=== PATIENT | male | born 1955 | race Caucasian/White ===

== ENCOUNTER 2018-01-06 11:28 | Emergency (ER) | payer BC ==
[2018-01-06 12:11] LABS: #Basophils 0.1 thou/uL (0.0-0.2); #Eosinphils 0.1 thou/uL (0.0-0.7); #Lymphocytes 1.3 thou/uL (1.20-3.40); #Monocytes 0.4 thou/uL (0.11-0.59); #Neutrophils 4.1 thou/uL (1.40-6.50); %Basophils 1.1 % (0.0-1.0); %Eosinophils 0.9 % (0.0-10.0); %Lymphocytes 22.2 % (21.0-51.0); %Monocytes 6.1 % (0.0-10.0); %Neutrophils 69.7 % (42.0-75.0); Hemoglobin 14.6 g/dL (14.0-18.0); Mean Corpuscular HGB CONC 33.6 g/dL (32.0-36.0); Mean Corpuscular Hemoglobin 31.5 pg (27.0-31.0); Mean Corpuscular Volume 93.6 fL (78.0-98.0); Mean Platelet Volume 6.7 fL (7.4-10.4); Platelet Count 302 thou/uL (130-400); RBC Distribution Width 11.2 % (11.5-14.5); Red Blood Cell (RBC) Count 4.65 mill/uL (4.70-6.10); White Blood Cell (WBC) Count 5.9 thou/uL (4.8-10.8)
[2018-01-06 12:35] LABS: ALT (SGPT) 19 U/L (8-55); AST (SGOT) 19 U/L (5-34); Albumin 4.9 g/dL (3.4-4.8); Alkaline Phosphatase 54 U/L (40-150); Anion Gap 13 mmol/L (10-20); BUN (Urea Nitrogen) 14 mg/dL (8.4-25.7); Bilirubin, Total 0.6 mg/dL (0.2-1.2); Calc. Creatinine Clearance 0 mL/min (70-130); Calcium 9.9 mg/dL (7.8-10.44); Carbon Dioxide 27 mmol/L (23-31); Chloride 103 mmol/L (98-107); Estimated GFR-MDRD 70; Globulin 3.3 g/dL (2.4-3.5); Glucose 142 mg/dL (80-115); Potassium 3.6 mmol/L (3.5-5.1); Protein, Total 8.2 g/dL (5.8-8.1); Sodium 139 mmol/L (136-145)
[2018-01-06 12:43] LABS: Bilirubin Negative (Negative); Blood, Urine Moderate (Negative); Clarity CLEAR (Clear); Glucose, Urine (Dipstick) Negative (Negative); Leukocyte Negative (Negative); Nitrite Negative (Negative); Protein, Urine (Dipstick) Trace mg/dL (Neg-Trace); Specific Gravity, Urine 1.012 (1.002-1.036); Urobilinogen 0.2 mg/dL (0.2-1.0); pH, Urine 5.5 (5.0-9.0)
[2018-01-06 12:45] LABS: Bacteria/HPF None Seen HPF (None Seen); Hyaline Casts/LPF 0-3 HYALINE CAST LPF (0-3 Hyaline); Pathc Cast-AUWi Flag 0.14 (0-2.49); RBC/HPF 21-50 HPF (0-3); Squamous Epithelial None Seen HPF (0-3); WBC/HPF 0-3 HPF (0-3)
--- NOTE | 2018-01-06 13:07 | CT ---
ABDOMEN CT WITHOUT CONTRAST PELVIC CT WITHOUT CONTRAST: COMPARISON: 10/07/2015, 02/26/2016. HISTORY: Sudden onset right flank pain. Nausea. FINDINGS: ABDOMEN CT: Chronic changes in the lung bases. Heart size is normal. No pericardial effusion. The descending t horacic aorta and abdominal aorta demonstrated atherosclerosis. No periaortic fat stranding. CT evidence of a 7 mm gallstone. No evidence of cholecystitis. Limited evaluation of the solid organs due to the lack of IV contrast administration. Grossly, no so lid organ abnormality. No gastrohepatic, retrocrural, or periportal lymphadenopathy. Nonobstructing calculi in the mid to lower pole of the right kidney measuring 0.8 and 1.3 cm respecti vely. No evidence of right-sided obstructive uropathy. With regards to the left intra- and extraren al collecting system, no evidence of obstructive uropathy. No mesenteric mass, lymphadenopathy, free air, or free fluid. There is a stable let parastomal hernia containing segments of mesentery, small bowel, and colon thro ugh the defect. No evidence of bowel incarceration or bowel obstruction. PELVIC CT: Mild mucosal prominence of the urinary bladder, nonspecific. Correlate for cystitis. There appear t o be post treatment changes involving the presacral fat and the pelvis posterior to the urinary bladd er. Stable sclerosis involving the right SI joint. Stable mild compression deformity at T11. IMPRESSION: 1. Nonobstructing calculi in the right intrarenal collecting system. Bilaterally, no obstructive ur opathy. 2. Left parastomal hernia with mesentery, colon, and small bowel loops extending through the defect. No evidence of bowel incarceration. 3. Cholelithiasis without evidence of cholecystitis. POS: [facility]
[2018-01-06] MEDS ORDERED: Ketorolac Tromethamine 30 MG/ML VIAL ONE (13:37)
== END 2018-01-06 13:36 | disposition home or self-care (01) ==
LOC: ERS 11:28
DX: R10.9 Unspecified abdominal pain (principal); Z71.6 Tobacco abuse counseling; F17.210 Nicotine dependence, cigarettes, uncomplicated; Z79.82 Long term (current) use of aspirin
CPT/HCPCS: 74176; 80053; 81003; 81015; 85025; 96374; 99406; J1885

== ENCOUNTER 2024-11-29 16:08 | Emergency (ER) | payer MEDICARE, OTHER ==
[2024-11-29 18:33] LABS: #Basophils 0.05 10x3/uL (0.0-0.2); #Eosinophils Less than 0.03 10x3/uL (0.0-0.7); #Monocytes 0.55 10x3/uL (0.11-0.59); #Neutrophils 8.81 10x3/uL (1.40-6.50); %Basophils 0.5 % (0.0-1.0); %Eosinophils 0.1 % (0.0-10.0); %Lymphocytes 8.2 % (21.0-51.0); %Monocytes 5.4 % (0.0-10.0); %Neutrophils 85.6 % (42.0-75.0); Hematocrit 44.7 % (42.0-52.0); Hemoglobin 14.8 g/dL (14.0-18.0); Mean Corpuscular Hemoglobin 30.1 pg (27.0-31.0); Mean Corpuscular Volume 90.9 fL (78.0-98.0); Platelet Count 290 10x3/uL (130-400); Red Blood Cell (RBC) Count 4.92 mill/uL (4.70-6.10); White Blood Cell (WBC) Count 10.28 10x3/uL (4.8-10.8)
[2024-11-29 18:51] LABS: ALT (SGPT) 14 U/L (Less than 45); AST (SGOT) 19 U/L (11-34); Albumin 4.2 g/dL (3.1-4.5); Alkaline Phosphatase 60 U/L (40-110); Anion Gap 14 mmol/L (10-20); BUN (Urea Nitrogen) 15 mg/dL (8.4-25.7); Bilirubin, Total 0.7 mg/dL (0.3-1.2); Calc. Creatinine Clearance 0 mL/min (70-130); Calcium 9.7 mg/dL (7.8-10.44); Carbon Dioxide 23 mmol/L (23-31); Chloride 98 mmol/L (98-107); Globulin 3.6 g/dL (2.4-3.5); Glucose 182 mg/dL (80-115); Potassium 4.4 mmol/L (3.5-5.1); Sodium 131 mmol/L (136-145)
[2024-11-29 18:54] LABS: Bacteria/HPF None Seen HPF (None Seen); CAUTI Indications for Culture Acute Hematuria; Leukocyte Negative Leu/uL (Negative); RBC/HPF Greater than 50 HPF (0-3); Specific Gravity, Urine 1.015 (1.002-1.036)
[2024-11-29 18:56] LABS: Glucose, Urine (Dipstick) 50 mg/dL (Negative); Protein, Urine (Dipstick) 20 mg/dL (Neg-Trace)
[2024-11-29 18:57] LABS: Urine Culture Reflex No No
[2024-11-29] MEDS ORDERED: Ondansetron PF 4 MG/2 ML Vial ONE (19:28)
[2024-11-29] MEDS ORDERED: Ketorolac Tromethamine 30 MG (1 mL) VIAL ONE (19:28)
== END 2024-11-29 20:56 | disposition home or self-care (01) ==
LOC: ERS 16:08
DX: N13.2 Hydronephrosis with renal and ureteral calculous obstruction (principal); F17.290 Nicotine dependence, other tobacco product, uncomplicated
CPT/HCPCS: 74176; 80053; 81001; 85025; J1885; J2405; 96374; 96375

== ENCOUNTER 2024-12-19 18:33 | Inpatient (IN) | payer MEDICARE ==
[~2024-12-19 18:33] MED LIST: Iopamidol-370 76% 500 ML MDV (1 ML CHARGE) ONE
[2024-12-19 20:01] LABS: #Basophils 0.06 10x3/uL (0.0-0.2); #Eosinophils Less than 0.03 10x3/uL (0.0-0.7); #Monocytes 1.11 10x3/uL (0.11-0.59); #Neutrophils 16.12 10x3/uL (1.40-6.50); %Basophils 0.3 % (0.0-1.0); %Eosinophils 0.1 % (0.0-10.0); %Lymphocytes 1.5 % (21.0-51.0); %Monocytes 6.3 % (0.0-10.0); %Neutrophils 91.2 % (42.0-75.0); Hematocrit 35.4 % (42.0-52.0); Hemoglobin 11.8 g/dL (14.0-18.0); Mean Corpuscular Hemoglobin 29.9 pg (27.0-31.0); Mean Corpuscular Volume 89.6 fL (78.0-98.0); Platelet Count 356 10x3/uL (130-400); Red Blood Cell (RBC) Count 3.95 mill/uL (4.70-6.10); White Blood Cell (WBC) Count 17.69 10x3/uL (4.8-10.8)
[2024-12-19 20:29] LABS: ALT (SGPT) 55 U/L (Less than 45); AST (SGOT) 92 U/L (11-34); Albumin 2.6 g/dL (3.1-4.5); Alkaline Phosphatase 101 U/L (40-110); Anion Gap 21 mmol/L (10-20); BUN (Urea Nitrogen) 30 mg/dL (8.4-25.7); Bilirubin, Total 0.5 mg/dL (0.3-1.2); Calc. Creatinine Clearance 0 mL/min (70-130); Calcium 8.8 mg/dL (7.8-10.44); Carbon Dioxide 17 mmol/L (23-31); Chloride 97 mmol/L (98-107); Globulin 4.5 g/dL (2.4-3.5); Glucose 553 mg/dL (80-115); Potassium 4.9 mmol/L (3.5-5.1); Sodium 130 mmol/L (136-145)
[2024-12-19] MEDS ORDERED: Acetaminophen 500 MG TAB ONE (21:07)
[2024-12-19] MEDS ORDERED: Aspirin Chewable 81 MG TAB ONE (21:07)
[2024-12-19 21:25] LABS: Magnesium 2.0 mg/dL (1.6-2.6)
[2024-12-19 21:33] LABS: CAUTI Indications for Culture Fever or rigors; Glucose, Urine (Dipstick) Greater than 1000 mg/dL (Negative); Leukocyte 250 Leu/uL (Negative); Protein, Urine (Dipstick) 30 mg/dL (Neg-Trace); Specific Gravity, Urine 1.024 (1.002-1.036); WBC/HPF 21-50 HPF (0-3)
[2024-12-19 21:34] LABS: Bacteria/HPF 1+ HPF (None Seen)
[2024-12-19 21:35] LABS: Urine Culture Reflex Yes Yes
[2024-12-19 22:15] LABS: Actual Bicarbonate (HCO3v) 17.4 mEq/L (22-28); Base Excess -5.1 mEq/L (-2.0 to +3.0); Calcium, Ionized (venous) 1.05 mmol/L (1.16-1.32); Chloride (VBG) 99 mmol/L (98-106); Hematocrit-VBG 36 % (42.0-52.0); Hemoglobin (Hb) 12.2 g/dL (12.6-17.4); Potassium (VBG) 4.15 mmol/L (3.70-5.30); Sodium 130 mmol/L (133-146)
[2024-12-19] MEDS ORDERED: Ondansetron PF 4 MG/2 ML Vial IVP PRN (22:21)
[2024-12-19] MEDS ORDERED: INSULIN REGULAR IN 0.9 % NACL 100 ML ONE (22:22)
[2024-12-19] MEDS ORDERED: Enoxaparin 80 MG (0.8 mL) SYRINGE ONE (22:22)
[2024-12-19] MEDS ORDERED: NS 0.9% w/ 20 MEQ KCL 1,000 ML ONE (22:24)
[2024-12-20 01:10] LABS: Anion Gap 18 mmol/L (10-20); BUN (Urea Nitrogen) 28 mg/dL (8.4-25.7); Calc. Creatinine Clearance 0 mL/min (70-130); Calcium 7.8 mg/dL (7.8-10.44); Carbon Dioxide 14 mmol/L (23-31); Chloride 108 mmol/L (98-107); Glucose 390 mg/dL (80-115); Potassium 3.8 mmol/L (3.5-5.1); Sodium 136 mmol/L (136-145)
[2024-12-20] MEDS: Vancomycin 1.5 GM / NS 500ML VIAL-2-BAG IVPB SCH (01:53)
[2024-12-20] MEDS: NS 0.9% w/ 20 MEQ KCL 1,000 ML IV PRN ×2 (01:56→13:30)
[2024-12-20] MEDS: PHOS-NAK 1 PKT PACK PO SCH ×2 (02:42)
[2024-12-20 04:03] LABS: #Basophils 0.07 10x3/uL (0.0-0.2); #Eosinophils 0.03 10x3/uL (0.0-0.7); #Monocytes 0.73 10x3/uL (0.11-0.59); #Neutrophils 13.30 10x3/uL (1.40-6.50); %Basophils 0.5 % (0.0-1.0); %Eosinophils 0.2 % (0.0-10.0); %Lymphocytes 3.6 % (21.0-51.0); %Monocytes 5.0 % (0.0-10.0); %Neutrophils 90.2 % (42.0-75.0); Hematocrit 32.8 % (42.0-52.0); Hemoglobin 10.6 g/dL (14.0-18.0); Mean Corpuscular Hemoglobin 30.1 pg (27.0-31.0); Mean Corpuscular Volume 93.2 fL (78.0-98.0); Platelet Count 259 10x3/uL (130-400); Red Blood Cell (RBC) Count 3.52 mill/uL (4.70-6.10); White Blood Cell (WBC) Count 14.73 10x3/uL (4.8-10.8)
[2024-12-20] MEDS: D5 1/2 NS w/20 mEq KCL 1,000 ML IV PRN (04:16)
[2024-12-20 04:19] LABS: ALT (SGPT) 39 U/L (Less than 45); AST (SGOT) 41 U/L (11-34); Albumin 2.3 g/dL (3.1-4.5); Alkaline Phosphatase 83 U/L (40-110); Bilirubin, Direct 0.1 mg/dL (0.1-0.3); Bilirubin, Total 0.3 mg/dL (0.3-1.2)
[2024-12-20 04:21] LABS: Anion Gap 15 mmol/L (10-20); BUN (Urea Nitrogen) 26 mg/dL (8.4-25.7); Calc. Creatinine Clearance 56 mL/min (70-130); Calcium 8.1 mg/dL (7.8-10.44); Carbon Dioxide 16 mmol/L (23-31); Chloride 111 mmol/L (98-107); Glucose 275 mg/dL (80-115); Magnesium 2.2 mg/dL (1.6-2.6); Potassium 3.9 mmol/L (3.5-5.1); Sodium 138 mmol/L (136-145)
[2024-12-20] MEDS: Magnesium 2 GM/50 ML(in water) 2 GM in Premix 1 BAG IVPB SCH (07:57)
[2024-12-20] MEDS: Enoxaparin 40 MG (0.4 mL) SYRINGE SC SCH (08:17)
[2024-12-20 08:40] LABS: Anion Gap 16 mmol/L (10-20); BUN (Urea Nitrogen) 21 mg/dL (8.4-25.7); Calc. Creatinine Clearance 64 mL/min (70-130); Calcium 8.2 mg/dL (7.8-10.44); Carbon Dioxide 17 mmol/L (23-31); Chloride 110 mmol/L (98-107); Glucose 177 mg/dL (80-115); Potassium 4.3 mmol/L (3.5-5.1); Sodium 139 mmol/L (136-145)
[2024-12-20] MEDS: INSULIN REGULAR IN 0.9 % NACL 100 ML IVPB SCH (09:28)
[2024-12-20] MEDS: Dextrose 50% Abboject 50 ML SYRINGE SLOW IVP PRN (09:39)
[2024-12-20] MEDS ORDERED: Glucagon 1 MG/ML KIT IM PRN (13:00)
[2024-12-20] MEDS ORDERED: Dextrose 50% Abboject 50 ML SYRINGE SLOW IVP PRN (13:00)
[2024-12-20 15:23] LABS: Anion Gap 14 mmol/L (10-20); BUN (Urea Nitrogen) 16 mg/dL (8.4-25.7); Calc. Creatinine Clearance 63 mL/min (70-130); Calcium 7.9 mg/dL (7.8-10.44); Carbon Dioxide 20 mmol/L (23-31); Chloride 107 mmol/L (98-107); Glucose 338 mg/dL (80-115); Potassium 4.5 mmol/L (3.5-5.1); Sodium 136 mmol/L (136-145)
[2024-12-20] MEDS: Vancomycin 1.5 GM / NS 500 ML VIAL-2-BAG IVPB SCH (16:14)
[2024-12-20] MEDS: Insulin NPH Human Isophane 100 UNITS/ML (10 ML VIAL) SC SCH (17:48)
[2024-12-20] MEDS: Mupirocin 1 GM TUBE TP SCH (20:52)
[2024-12-20] MEDS ORDERED: Vancomycin 1 GM in Premix 1 BAG IVPB SCH (21:00)
[2024-12-21 05:40] LABS: #Basophils 0.05 10x3/uL (0.0-0.2); #Eosinophils 0.07 10x3/uL (0.0-0.7); #Monocytes 1.04 10x3/uL (0.11-0.59); #Neutrophils 13.64 10x3/uL (1.40-6.50); %Basophils 0.3 % (0.0-1.0); %Eosinophils 0.4 % (0.0-10.0); %Lymphocytes 4.3 % (21.0-51.0); %Monocytes 6.7 % (0.0-10.0); %Neutrophils 87.5 % (42.0-75.0); Hematocrit 31.9 % (42.0-52.0); Hemoglobin 10.0 g/dL (14.0-18.0); Mean Corpuscular Hemoglobin 29.3 pg (27.0-31.0); Mean Corpuscular Volume 93.5 fL (78.0-98.0); Platelet Count 254 10x3/uL (130-400); Red Blood Cell (RBC) Count 3.41 mill/uL (4.70-6.10); White Blood Cell (WBC) Count 15.59 10x3/uL (4.8-10.8)
[2024-12-21 05:54] LABS: Anion Gap 14 mmol/L (10-20); BUN (Urea Nitrogen) 12 mg/dL (8.4-25.7); Calc. Creatinine Clearance 84 mL/min (70-130); Calcium 7.0 mg/dL (7.8-10.44); Carbon Dioxide 16 mmol/L (23-31); Chloride 108 mmol/L (98-107); Glucose 195 mg/dL (80-115); Potassium 3.9 mmol/L (3.5-5.1); Sodium 134 mmol/L (136-145)
[2024-12-21 05:59] LABS: Vancomycin, Random 10.5 ug/mL (See Comment)
[2024-12-21] MEDS: PHOS-NAK 1 PKT PACK PO SCH (08:13)
[2024-12-21] MEDS: Vancomycin 1.5 GM / NS 500 ML VIAL-2-BAG IVPB SCH (14:10)
[2024-12-21] MEDS: LevoFLOXacin 750 mg/D5W 750 MG in Premix 1 BAG IVPB SCH (14:19)
[2024-12-21] MEDS: Insulin NPH Human Isophane 100 UNITS/ML (10 ML VIAL) SC SCH (16:58)
[2024-12-21] MEDS: Acetaminophen 325 MG TAB PO PRN (17:53)
[2024-12-21] MEDS ORDERED: Vancomycin 1 GM in Premix 1 BAG IVPB SCH (23:00)
[2024-12-22 06:03] LABS: #Basophils 0.08 10x3/uL (0.0-0.2); #Eosinophils 0.10 10x3/uL (0.0-0.7); #Monocytes 1.05 10x3/uL (0.11-0.59); #Neutrophils 12.87 10x3/uL (1.40-6.50); %Basophils 0.5 % (0.0-1.0); %Eosinophils 0.7 % (0.0-10.0); %Lymphocytes 5.6 % (21.0-51.0); %Monocytes 7.0 % (0.0-10.0); %Neutrophils 85.5 % (42.0-75.0); Hematocrit 36.3 % (42.0-52.0); Hemoglobin 11.4 g/dL (14.0-18.0); Mean Corpuscular Hemoglobin 29.8 pg (27.0-31.0); Mean Corpuscular Volume 95.0 fL (78.0-98.0); Platelet Count 219 10x3/uL (130-400); Red Blood Cell (RBC) Count 3.82 mill/uL (4.70-6.10); White Blood Cell (WBC) Count 15.06 10x3/uL (4.8-10.8)
[2024-12-22 06:21] LABS: Anion Gap 14 mmol/L (10-20); BUN (Urea Nitrogen) 8 mg/dL (8.4-25.7); Calc. Creatinine Clearance 81 mL/min (70-130); Calcium 8.3 mg/dL (7.8-10.44); Carbon Dioxide 20 mmol/L (23-31); Chloride 105 mmol/L (98-107); Glucose 214 mg/dL (80-115); Potassium 4.0 mmol/L (3.5-5.1); Sodium 135 mmol/L (136-145)
[2024-12-23 06:51] LABS: Anion Gap 12 mmol/L (10-20); BUN (Urea Nitrogen) 10 mg/dL (8.4-25.7); Calc. Creatinine Clearance 76 mL/min (70-130); Calcium 8.2 mg/dL (7.8-10.44); Carbon Dioxide 24 mmol/L (23-31); Chloride 101 mmol/L (98-107); Glucose 223 mg/dL (80-115); Potassium 3.2 mmol/L (3.5-5.1); Sodium 134 mmol/L (136-145)
[2024-12-23 13:29] VITALS: BMI 22.9
[2024-12-23] MEDS: Lidocaine 2% Viscous Solution 10 ML, Aluminum & Magnesium Hydroxide 30 ML SSW SCH (14:10)
[2024-12-23] MEDS: Insulin Glargine 30 UNITS/0.3 ML VIAL SC SCH (21:33)
[2024-12-23 23:31] VITALS: BP 116/80
[2024-12-24 00:13] LABS: Actual Bicarbonate (HCO3v) 22.9 mEq/L (22-28); Anion Gap 19 mmol/L (10-20); BUN (Urea Nitrogen) 13 mg/dL (8.4-25.7); Base Excess 0.6 mEq/L (-2.0 to +3.0); Calc. Creatinine Clearance 65 mL/min (70-130); Calcium 8.4 mg/dL (7.8-10.44); Calcium, Ionized (venous) 1.03 mmol/L (1.16-1.32); Carbon Dioxide 20 mmol/L (23-31); Chloride 101 mmol/L (98-107); Chloride (VBG) 99 mmol/L (98-106); Glucose 218 mg/dL (80-115); Hematocrit-VBG 39 % (42.0-52.0); Hemoglobin (Hb) 13.3 g/dL (12.6-17.4); Potassium 3.6 mmol/L (3.5-5.1); Potassium (VBG) 3.62 mmol/L (3.70-5.30); Sodium 134 mmol/L (133-146); Sodium 136 mmol/L (136-145)
[2024-12-24] MEDS: Albumin 25% 25 GM (100 mL) BOT IVPB SCH (03:02)
[2024-12-24 03:12] LABS: #Basophils 0.06 10x3/uL (0.0-0.2); #Eosinophils Less than 0.03 10x3/uL (0.0-0.7); #Monocytes 1.06 10x3/uL (0.11-0.59); #Neutrophils 12.52 10x3/uL (1.40-6.50); %Basophils 0.4 % (0.0-1.0); %Eosinophils 0.1 % (0.0-10.0); %Lymphocytes 4.4 % (21.0-51.0); %Monocytes 7.3 % (0.0-10.0); %Neutrophils 86.8 % (42.0-75.0); Hematocrit 32.0 % (42.0-52.0); Hemoglobin 10.5 g/dL (14.0-18.0); Mean Corpuscular Hemoglobin 29.6 pg (27.0-31.0); Mean Corpuscular Volume 90.1 fL (78.0-98.0); Platelet Count 256 10x3/uL (130-400); Red Blood Cell (RBC) Count 3.55 mill/uL (4.70-6.10); White Blood Cell (WBC) Count 14.43 10x3/uL (4.8-10.8)
[2024-12-24 03:37] LABS: Anion Gap 16 mmol/L (10-20); BUN (Urea Nitrogen) 14 mg/dL (8.4-25.7); Calc. Creatinine Clearance 68 mL/min (70-130); Calcium 8.1 mg/dL (7.8-10.44); Carbon Dioxide 21 mmol/L (23-31); Chloride 102 mmol/L (98-107); Glucose 209 mg/dL (80-115); Potassium 3.3 mmol/L (3.5-5.1); Sodium 136 mmol/L (136-145)
[2024-12-24 04:11] VITALS: BMI 23.8
[2024-12-24] MEDS: NOREPINEPHRINE 8 MG/250 ML-D5W 250 ML IVPB SCH (05:42)
[2024-12-24] MEDS: Norepinephrine 8 MG/0.9% NS 0 ML ONE (05:49)
[2024-12-24] MEDS: Pantoprazole 40 MG DR.TAB PO SCH (09:06)
[2024-12-24] MEDS ORDERED: Norepinephrine 8 MG/0.9% NS 250 ML IVPB SCH (10:15)
[2024-12-24] MEDS: Furosemide 40 MG (4 mL) VIAL SLOW IVP SCH (11:04)
[2024-12-24] MEDS: Furosemide 40 MG (4 mL) VIAL ONE (11:05)
[2024-12-25 03:22] LABS: #Basophils 0.07 10x3/uL (0.0-0.2); #Eosinophils 0.07 10x3/uL (0.0-0.7); #Monocytes 1.14 10x3/uL (0.11-0.59); #Neutrophils 13.35 10x3/uL (1.40-6.50); %Basophils 0.4 % (0.0-1.0); %Eosinophils 0.4 % (0.0-10.0); %Lymphocytes 8.6 % (21.0-51.0); %Monocytes 7.0 % (0.0-10.0); %Neutrophils 82.6 % (42.0-75.0); Hematocrit 32.5 % (42.0-52.0); Hemoglobin 10.5 g/dL (14.0-18.0); Mean Corpuscular Hemoglobin 29.7 pg (27.0-31.0); Mean Corpuscular Volume 91.8 fL (78.0-98.0); Platelet Count 299 10x3/uL (130-400); Red Blood Cell (RBC) Count 3.54 mill/uL (4.70-6.10); White Blood Cell (WBC) Count 16.20 10x3/uL (4.8-10.8)
[2024-12-25 03:44] LABS: Anion Gap 16 mmol/L (10-20); BUN (Urea Nitrogen) 20 mg/dL (8.4-25.7); Calc. Creatinine Clearance 62 mL/min (70-130); Calcium 8.5 mg/dL (7.8-10.44); Carbon Dioxide 22 mmol/L (23-31); Chloride 104 mmol/L (98-107); Glucose 189 mg/dL (80-115); Potassium 3.9 mmol/L (3.5-5.1); Sodium 138 mmol/L (136-145)
[2024-12-25 20:26] VITALS: TEMP 99.6
[2024-12-26] MEDS ORDERED: Aspirin 81 mg Enteric Coated Tablet PO SCH (09:00)
== END 2024-12-26 00:37 | disposition short-term general hospital (02) | DRG 871 ==
LOC: ERS 18:33 → ERHOLD 22:21 → CCU 12-20 01:15 → SURG A 12-20 22:01 → CCU 12-24 00:22
PROVIDERS: ADMIT Internal Medicine; ATTEND Internal Medicine
PROC: 3E03329 Introduction of Other Anti-infective into Peripheral Vein, Percutaneous Approach (ICD-10-PCS; principal; 2024-12-19)
PROC: 0T9B70Z Drainage of Bladder with Drainage Device, Via Natural or Artificial Opening (ICD-10-PCS; 2024-12-20)
PROC: 3E033XZ Introduction of Vasopressor into Peripheral Vein, Percutaneous Approach (ICD-10-PCS; 2024-12-24)
PROC: 30233J1 Transfusion of Nonautologous Serum Albumin into Peripheral Vein, Percutaneous Approach (ICD-10-PCS; 2024-12-24)
PROC: 5A09357 Assistance with Respiratory Ventilation, Less than 24 Consecutive Hours, Continuous Positive Airway Pressure (ICD-10-PCS; 2024-12-24)
PROC: 5A0945A Assistance with Respiratory Ventilation, 24-96 Consecutive Hours, High Flow/Velocity Cannula (ICD-10-PCS; 2024-12-24)
PROC: 05HY33Z Insertion of Infusion Device into Upper Vein, Percutaneous Approach (ICD-10-PCS; 2024-12-25)
PROC: 3E04329 Introduction of Other Anti-infective into Central Vein, Percutaneous Approach (ICD-10-PCS; 2024-12-25)
PROC: 3E043XZ Introduction of Vasopressor into Central Vein, Percutaneous Approach (ICD-10-PCS; 2024-12-25)
DX: A41.81 Sepsis due to Enterococcus (principal); E11.10 Type 2 diabetes mellitus with ketoacidosis without coma; G93.41 Metabolic encephalopathy; R57.0 Cardiogenic shock; C19 Malignant neoplasm of rectosigmoid junction; N17.9 Acute kidney failure, unspecified; I5A Non-ischemic myocardial injury (non-traumatic); N13.6 Pyonephrosis; E87.1 Hypo-osmolality and hyponatremia; I47.10 Supraventricular tachycardia, unspecified; N20.0 Calculus of kidney; F10.90 Alcohol use, unspecified, uncomplicated; D64.9 Anemia, unspecified; N40.0 Benign prostatic hyperplasia without lower urinary tract symptoms; R33.8 Other retention of urine; I50.9 Heart failure, unspecified; R31.0 Gross hematuria; R29.6 Repeated falls; R74.01 Elevation of levels of liver transaminase levels; E83.39 Other disorders of phosphorus metabolism; F17.210 Nicotine dependence, cigarettes, uncomplicated; I37.1 Nonrheumatic pulmonary valve insufficiency; I36.1 Nonrheumatic tricuspid (valve) insufficiency; I35.2 Nonrheumatic aortic (valve) stenosis with insufficiency; I34.0 Nonrheumatic mitral (valve) insufficiency; Z98.890 Other specified postprocedural states; Z90.49 Acquired absence of other specified parts of digestive tract; Z79.899 Other long term (current) drug therapy; Z79.891 Long term (current) use of opiate analgesic; Z93.3 Colostomy status
CPT/HCPCS: 36415; 36416; 70450; 71045; 71275; 72125; 74177; 80048; 80053; 80076; 80202; 81001; 82010; 82805; 83036; 83605; 83735; 83880; 84100; 84484; 85025; 86141; 87040; 87077; 87086; 87149; 87186; 87428; 93005; 93010; 93306; 94660; 94760; 96361; 96365; 96366; 96367; 96372; 96375; J0282; J0290; J0692; J1650; J1815; J1940; J1956; J3475; J3480; J7030; J7070; J7120; J7999; P9047; Q9967

== ENCOUNTER → 2025-01-15 | Emergency (ER) | payer MEDICARE, OTHER ==
[2025-01-15 09:53] LABS: Glucose, Urine (Dipstick) 250 mg/dL (Negative); Leukocyte Trace (Negative); Protein, Urine (Dipstick) 30 mg/dL (Neg-Trace); Specific Gravity, Urine 1.015 (1.005-1.030)
[2025-01-15 10:07] LABS: Bacteria/HPF Rare-Few HPF (None Seen); CAUTI Indications for Culture Acute Hematuria; RBC/HPF Greater than 50 HPF (0-3)
[2025-01-15 10:08] LABS: Urine Culture Reflex No No
[2025-01-15 11:10] LABS: #Basophils 0.19 10x3/uL (0.0-0.2); #Eosinophils 0.29 10x3/uL (0.0-0.7); #Monocytes 0.77 10x3/uL (0.11-0.59); #Neutrophils 7.80 10x3/uL (1.40-6.50); %Basophils 1.8 % (0.0-1.0); %Eosinophils 2.8 % (0.0-10.0); %Lymphocytes 11.8 % (21.0-51.0); %Monocytes 7.5 % (0.0-10.0); %Neutrophils 75.5 % (42.0-75.0); Hematocrit 27.4 % (42.0-52.0); Hemoglobin 8.5 g/dL (14.0-18.0); Mean Corpuscular Hemoglobin 28.4 pg (27.0-31.0); Mean Corpuscular Volume 91.6 fL (78.0-98.0); Platelet Count 239 10x3/uL (130-400); Red Blood Cell (RBC) Count 2.99 mill/uL (4.70-6.10); White Blood Cell (WBC) Count 10.33 10x3/uL (4.8-10.8)
[2025-01-15 11:24] LABS: ALT (SGPT) 43 U/L (Less than 45); AST (SGOT) 25 U/L (11-34); Albumin 2.2 g/dL (3.1-4.5); Alkaline Phosphatase 91 U/L (40-110); Anion Gap 13 mmol/L (10-20); BUN (Urea Nitrogen) 14 mg/dL (8.4-25.7); Bilirubin, Total 0.4 mg/dL (0.3-1.2); Calc. Creatinine Clearance 0 mL/min (70-130); Calcium 8.5 mg/dL (7.8-10.44); Carbon Dioxide 22 mmol/L (23-31); Chloride 106 mmol/L (98-107); Globulin 3.6 g/dL (2.4-3.5); Glucose 135 mg/dL (80-115); Potassium 4.3 mmol/L (3.5-5.1); Sodium 137 mmol/L (136-145)
== END ==
LOC: ERS 08:04
DX: T82.594A Other mechanical complication of infusion catheter, initial encounter (principal); R78.81 Bacteremia; R33.9 Retention of urine, unspecified; E11.9 Type 2 diabetes mellitus without complications; F17.290 Nicotine dependence, other tobacco product, uncomplicated
CPT/HCPCS: 36415; 80053; 81001; 85025; 87086; 99284